=== PATIENT | male | born 1995 | race Caucasian/White ===

== ENCOUNTER 2024-04-13 19:36 | Inpatient (IN) ==
[2024-04-13] MEDS: ACETAMINOPHEN 500 MG TAB PO STA (20:01)
[2024-04-13 20:09] LABS: Basophils # (auto) 0.01 K/uL (0.00-0.20); Basophils % (auto) 0.1 %; Hematocrit (blood only) 42.8 % (42.0-52.0); Immature Granulocytes # (auto) 0.02 K/uL (0.01-0.20); Immature Granulocytes % (auto) 0.3 %; Lymphocytes # (auto) 1.45 K/uL (1.20-3.40); Lymphocytes % (auto) 19.2 %; Mean Corpuscular Volume 82.6 fL (80.0-100.0); Mean Platelet Volume 10.6 fL (9.4-12.4); Monocytes # (auto) 0.89 K/uL (0.11-0.59); Monocytes % (auto) 11.8 %; Neutrophils # (auto) 5.18 K/uL (1.40-6.50); Neutrophils % (auto) 68.6 %; Platelet Count 170 K/uL (130-400); RDW Coefficient of Variation 11.7 % (11.5-14.5); RDW Standard Deviation 35.2 fL (36.4-46.3); Red Blood Count 5.18 M/uL (4.70-6.10); White Blood Count 7.55 K/ul (4.8-10.8)
[2024-04-13 20:25] LABS: Albumin Globulin Ratio 1.2 (0.9-2); Albumin Level 4.4 gm/dl (3.4-5.0); Bilirubin,Total 0.8 mg/dl (0.2-1.0); Calcium 9.6 mg/dl (8.6-10.3); Creatinine Clr Calc Pharmacy 109.3 ml/min; Globulin 3.8 gm/dl (2.5-4.0); Potassium 3.5 mmol/L (3.5-5.1); Total Protein 8.2 gm/dl (6.0-8.3)
[2024-04-13 20:32] LABS: Troponin I High Sensitivity 4.2 pg/ml (0-20)
[2024-04-13 20:56] LABS: Adenovirus PCR Not Detected (NotDetected); Bordetella parapertussis PCR Not Detected (NotDetected); Bordetella pertussis PCR Not Detected (NotDetected); Chlamydia pneumoniae PCR Not Detected (NotDetected); Coronavirus 229E PCR Not Detected (NotDetected); Coronavirus CoV-2 (COVID19)PCR Not Detected (NotDetected); Coronavirus HKU1 PCR Not Detected (NotDetected); Coronavirus NL63 PCR Not Detected (NotDetected); Coronavirus OC43PCR Not Detected (NotDetected); Human Metapneumovirus PCR Not Detected (NotDetected); Influenza A PCR Not Detected (NotDetected); Influenza B PCR Not Detected (NotDetected); Mycoplasma pneumoniae PCR DETECTED (NotDetected); Parainfluenza Virus 1 PCR Not Detected (NotDetected); Parainfluenza Virus 2 PCR Not Detected (NotDetected); Parainfluenza Virus 3 PCR Not Detected (NotDetected); Parainfluenza Virus 4 PCR Not Detected (NotDetected); Respiratory Syncytial VirusPCR Not Detected (NotDetected); Rhinovirus/Enterovirus PCR Not Detected (NotDetected)
[2024-04-13 21:12] LABS: D Dimer 2260 ug/L FEU (0-500)
[2024-04-13] MEDS: OPTIRAY 320 125ml IV ONE (21:20)
[2024-04-13] MEDS: AZITHROMYCIN 250 MG TAB PO ONE (21:22)
--- NOTE | 2024-04-13 21:47 | Emergency Department Note ---
Impression & Plan Infection due to Mycoplasma pneumoniae, Aspiration pneumonia, Borderline low O2 saturation ED Provider Note NAME: SANJU CHATTERJEE AGE: 28 SEX: M : 1995 ARRIVES VIA: Walk-In INFORMANT: Patient ED PROVIDER(S): Fortunato Preston MD CHIEF COMPLAINT: Shortness of breath, pneumonia. PLAN: Disposition: Admit MEDICAL DECISION MAKING: The patient is a pleasant 28-year-old gentleman who presents to the emergency department for evaluation of cough, congestion, chest tightness, worsening shortness of breath over the past several days with symptoms that began on Thursday reports severe coughing fits where he vomited yesterday. He was diagnosed with pneumonia yesterday and started on Amoxicillin. He denies any history of asthma or lung disease. He denies any history of smoking. He denies any history of blood clots. Of note, the patient did arrive to emergency department during time of high volume, acuity and prolonged emergency department waiting times. Critical pathways initiated from triage. The patient presents to triage with temperature of 37.8 heart in the 120s and vital signs otherwise stable. O2 saturation is 93% and greater on room air. Vital signs are otherwise stable. On exam following CT of the chest patient is noticed to be tachypneic with mild dyspnea intermittent wheeze and rhonchi of right mid to lower lung muñoz. He appears clinically dry. EKG without overt acute ischemia. Chest x-ray demonstrates right lower lobe airspace opacities better characterized on CTA of the chest which demonstrates extensive multifocal airspace opacities involving the right middle and lower lobe. Negative for PE. WBC within normal limits without left shift. Chemistry without metabolic acidosis. LFTs are unremarkable. High-sensitivity troponin 4.2, within normal limits. Lipase is not elevated. Procalcitonin was not elevated. D-dimer was elevated at [address] of the chest. Respiratory BioFire was positive for mycoplasma pneumoniae. Azithromycin was ordered. Following CTA of the chest demonstrating significant right lower lobe pneumonia concern for component of aspiration pneumonia as well. Blood culture was ordered and Unasyn for additional coverage of aspiration. Dexamethasone and DuoNeb ordered for component of bronchospasm. Given the patient's work of breathing in setting of his tachycardia and feverishness he does agree with plan for admission for further management. 2L NSS ordered given tachycardia and tachypnea in the setting of PNA. Case was discussed with Fredy Haile hospitalist, who will evaluate the patient for admission. Further management per admitting team. Triage Nursing notes reviewed and agree them. Prior/external medical records reviewed Vital Signs: reviewed Differential diagnosis: Reactive airway disease, pneumonia, pneumothorax, COPD, CHF, infections, cardiac ischemia, pulmonary embolism, musculoskeletal, gastrointestinal, as well as other pathologies. ER treatment provided: See below. Diagnostics interpreted by me: ECG: Sinus tachycardia, 125 bpm, no ectopy, no overt ST elevation or depression, QTc 407, QRS 88. Cardiac Monitoring: An order for continuous cardiac monitoring was placed and demonstrated Sinus tachycardia, 125 bpm, no ectopy. Laboratory studies: See below Imaging studies: See below Consultation(s): Case was discussed with Dr. Mayen, [facility], who will evaluate the patient for admission. HPI: The patient is a pleasant 28-year-old gentleman who presents to the emergency department for evaluation of cough, congestion, chest tightness, worsening shortness of breath over the past several days with symptoms that began on Thursday reports severe coughing fits where he vomited yesterday. He was diagnosed with pneumonia yesterday and started on Amoxicillin. He denies any history of asthma or lung disease. He denies any history of smoking. He denies any history of blood clots. ROS: See above HPI for pertinent positives & negatives. A total of 10 systems reviewed and were otherwise negative. VITALS:See Below PHYSICAL EXAMINATION: GENERAL: Awake, alert, ill-appearing, in no distress HENT: Normocephalic, atraumatic. Oropharynx with dry mucous membranes and otherwise unremarkable. EYES: Normal conjunctiva. Sclera non-icteric. NECK: Supple. No nuchal rigidity. FROM. No JVD. RESPIRATORY: Tachypneic with mild dyspnea intermittent wheeze and rhonchi of right mid to lower lung muñoz. CARDIAC: Tachycardic rate, normal rhythm. Extremities warm and well perfused. Pulses equal. ABDOMEN: Soft, non-distended. No tenderness to palpation. No rebound or guarding. No masses. MUSCULOSKELETAL: Chest examination reveals no tenderness. The back is symmetrical on inspection without obvious abnormality. There is no CVA tenderness to palpation. No joint edema. LOWER EXTREMITIES: Calves are equal size bilaterally and non-tender. No edema. No discoloration. NEURO: Normal sensorium. No sensory or motor deficits noted. SKIN: No rash or jaundice noted. Fortunato Preston MD Past Med/Surg History Problem List (Updated 04/14/24 @ 04:57 by Fortunato Preston MD) Borderline low O2 saturation (Acute) Aspiration pneumonia (Acute) Infection due to Mycoplasma pneumoniae (Acute) No significant medical problems Social History Smoking Status: Former smoker Hx Alcohol Use: No Hx Substance Use: No Preferred Language: Bangladeshi Communication Ability: Effective Beliefs That Will Affect Care: None Current Living Situation: Spouse Feels Safe at Home: Yes Safety Concerns: Feels Safe At This Time Allergies Allergies Allergy/AdvReac Type Severity Reaction Status Date / Time No Known Allergies Allergy Unverified 03/18/16 15:59 Home Meds Home Medications Medication Instructions Recorded Confirmed venlafaxine 75 mg capsule,extended 75 mg PO DAILY 04/13/24 04/13/24 release 24 hr Results & Data (ED) Vital Signs Vital Signs - 24 hr 04/13/24 19:43 04/13/24 19:46 04/13/24 21:40 Temperature 37.8 C H Temperature Source Temporal Artery Scan Pulse Rate 128 H 114 H Pulse Rate [Apical] Pulse Rhythm [Apical] Pulse Strength [Apical] Respiratory Rate 22 Respiratory Effort / Characteristics Non-Labored Respiratory Depth Normal Blood Pressure 138/84 Blood Pressure [Right Arm] Blood Pressure Mean 102 Blood Pressure Mean [Right Arm] Pulse Oximetry 94 Oxygen Delivery Method Room Air Sepsis Recent Fever Within 48 Hours No Sepsis New/Unexplained Change in Mental Status No Sepsis Action Taken by Nursing No Action Required 04/13/24 23:16 04/13/24 23:18 Temperature 37.9 C H Temperature Source Oral Pulse Rate Pulse Rate [Apical] 106 H Pulse Rhythm [Apical] Regular Pulse Strength [Apical] Normal Respiratory Rate 18 Respiratory Effort / Characteristics Respiratory Depth Blood Pressure Blood Pressure [Right Arm] 112/69 Blood Pressure Mean Blood Pressure Mean [Right Arm] 83 Pulse Oximetry 98 96 Oxygen Delivery Method Room Air Room Air Sepsis Recent Fever Within 48 Hours Sepsis New/Unexplained Change in Mental Status Sepsis Action Taken by Nursing Laboratory Data Attestation: I reviewed the patient's lab results. 04/13/24 19:58 04/13/24 19:58 Lab Results 04/13/24 04/13/24 04/13/24 Range/Units 19:53 19:58 22:28 WBC 7.55 (4.8-10.8) K/ul RBC 5.18 (4.70-6.10) M/uL Hgb 15.0 (14.0-18.0) g/dl Hct 42.8 (42.0-52.0) % MCV 82.6 (80.0-100.0) fL MCH 29.0 (25.0-34.0) pg MCHC 35.0 (32.0-36.0) g/dL RDW Std Deviation 35.2 L (36.4-46.3) fL RDW Coeff of Sita 11.7 (11.5-14.5) % Plt Count 170 (130-400) K/uL MPV 10.6 (9.4-12.4) fL Immature Gran % (Auto) 0.3 % Neut % (Auto) 68.6 % Lymph % (Auto) 19.2 % [place] % (Auto) 11.8 % Eos % (Auto) 0.0 % Baso % (Auto) 0.1 % Neut # (Auto) 5.18 (1.40-6.50) K/uL Lymph # (Auto) 1.45 (1.20-3.40) K/uL [place] # (Auto) 0.89 H (0.11-0.59) K/uL Eos # (Auto) 0.00 (0.00-0.50) K/uL Baso # (Auto) 0.01 (0.00-0.20) K/uL Immature Gran # (Auto) 0.02 (0.01-0.20) K/uL D-Dimer 2260 H* (0-500) ug/L FEU Sodium 135 L (136-145) mmol/L Potassium 3.5 (3.5-5.1) mmol/L Chloride 101 (98-107) mmol/L Carbon Dioxide 24 (21-32) mmol/L Anion Gap 10 (3-11) BUN 12 (6-23) mg/dl Creatinine 1.20 (0.6-1.4) mg/dl Est Cr Clr Drug Dosing 109.3 ml/min eGFR 83.95 BUN/Creatinine Ratio 10.0 (10-20) Glucose 111 H (70-99(Fasting)) mg/dl Lactate 1.2 (0.4-2.0) mmol/L Calcium 9.6 (8.6-10.3) mg/dl Total Bilirubin 0.8 (0.2-1.0) mg/dl AST 31 (13-39) U/L ALT 46 (7-52) U/L Alkaline Phosphatase 85 (34-104) U/L Troponin I High Sens 4.2 (0-20) pg/ml Total Protein 8.2 (6.0-8.3) gm/dl Albumin 4.4 (3.4-5.0) gm/dl Globulin 3.8 (2.5-4.0) gm/dl Albumin/Globulin Ratio 1.2 (0.9-2) Lipase 19 (11-82) U/L Procalcitonin 0.22 (0-0.5) ng/ml Adenovirus (PCR) Not Detected (NotDetected) B. pertussis DNA (PCR) Not Detected (NotDetected) B.parapertussis DNA PCR Not Detected (NotDetected) C. pneumoniae DNA (PCR) Not Detected (NotDetected) Coronavirus OC43 (PCR) Not Detected (NotDetected) Coronavirus HKU1 (PCR) Not Detected (NotDetected) Coronavirus 229E (PCR) Not Detected (NotDetected) SARS-CoV-2 (PCR) Not Detected (NotDetected) Coronavirus NL63 (PCR) Not Detected (NotDetected) Human Metapneumovir PCR Not Detected (NotDetected) Influenza Type A (PCR) Not Detected (NotDetected) Influenza Type B (PCR) Not Detected (NotDetected) M. pneumoniae (PCR) DETECTED A (NotDetected) Parainfluenza 1 (PCR) Not Detected (NotDetected) Parainfluenza 2 (PCR) Not Detected (NotDetected) Parainfluenza 3 (PCR) Not Detected (NotDetected) Parainfluenza 4 (PCR) Not Detected (NotDetected) RSV (PCR) Not Detected (NotDetected) Entero/Rhino (PCR) Not Detected (NotDetected) Administered Medications Discontinued Medications Acetaminophen (Acetaminophen 500 Mg Tab) 1,000 mg PO NOW STA Stop: 04/13/24 19:48 Last Admin: 04/13/24 20:01 Dose: 1,000 mg Documented By: [facility] Albuterol (Albut/Ipratrop 3mg/0.5mg Neb 3 Ml Vial) 3 ml NEB NOW STA; Protocol Stop: 04/13/24 21:34 Last Admin: 04/13/24 21:51 Dose: 3 ml Documented By: SHANTAL Azithromycin (Azithromycin 250 Mg Tab) 500 mg PO NOW ONE Stop: 04/13/24 21:07 Last Admin: 04/13/24 21:22 Dose: 500 mg Documented By: ASAD Benzonatate (Benzonatate 100 Mg Capsule) 100 mg PO NOW ONE Stop: 04/14/24 00:44 Last Admin: 04/14/24 01:34 Dose: 100 mg Documented By: Hegla Dexamethasone Sodium Phosphate (DexamethasonePf 10 Mg/Ml Vial) 10 mg IV NOW ONE Stop: 04/13/24 21:34 Last Admin: 04/13/24 21:51 Dose: 10 mg Documented By: SHANTAL Guaifenesin (Guaifenesin 600 Mg Tabcr) 1,200 mg PO NOW STA Stop: 04/13/24 21:34 Last Admin: 04/13/24 21:54 Dose: 1,200 mg Documented By: SHANTAL Sodium Chloride (Nss) 1,000 mls @ 999 mls/hr IV .Q1H1M [facility] Stop: 04/13/24 23:45 Last Infusion: 04/14/24 01:15 Dose: Infused Documented By: [facility] Admin: 04/14/24 00:08 Dose: 999 mls/hr Documented By: Infusion: 04/13/24 23:20 Dose: Infused Documented By: [facility] Admin: 04/13/24 21:52 Dose: 999 mls/hr Documented By: SHANTAL Ampicillin Sodium/Sulbactam Sodium (Unasyn) 3,000 mg in 100 mls @ 200 mls/hr IV NOW STA Stop: 04/13/24 22:02 Last Infusion: 04/13/24 23:37 Dose: Infused Documented By: [facility] Admin: 04/13/24 22:51 Dose: 200 mls/hr Documented By: SHANTAL Sodium Chloride (Nss) 500 mls @ 80 mls/hr IV .Q6H15M [facility] Stop: 04/14/24 06:57 Last Admin: 04/14/24 01:44 Dose: Not Given Documented By: [facility] Ioversol (Optiray 320 125ml) 118 ml IV ONCE ONE Stop: 04/13/24 21:21 Last Admin: 04/13/24 21:20 Dose: 118 ml Documented By: MALLORY Ketorolac Tromethamine (Ketorolac Tromethamine 15 Mg/Ml Vial) 15 mg IV NOW STA Stop: 04/13/24 21:34 Last Admin: 04/13/24 21:51 Dose: 15 mg Documented By: SHANTAL Imaging Data Radiologist's Impression: Chest X-Ray 04/13/24 19:46 SINGLE VIEW CHEST CLINICAL HISTORY: Atypical chest pain FINDINGS: 2 PA chest radiographs are obtained. No prior studies are available for comparison at the time of dictation. The cardiomediastinal silhouette is unremarkable. There is airspace consolidation at the right lung base. Left lung appears clear. No large pleural effusion or Pneumothorax is seen. The bony thorax is grossly intact. IMPRESSION: Airspace consolidation at the right lung base is typical for pneumonia. Clinical correlation will be required and radiographic follow-up to resolution is recommended. ACT 112: Negative or not required by law. Electronically signed by: Munir Mcneil M.D. 04/13/2024 9:59 PM Chest CTA 04/13/24 21:06 Exam(s): CTA CHEST IV Amt: 118ml optiray 320 EXAM: CT Angiography Chest With Intravenous Contrast CLINICAL HISTORY: shortness of breath, +D-dimer, +mycoplasma, r/o PE. TECHNIQUE: Axial computed tomographic angiography images of the chest with intravenous contrast. CTDI is 28.14 mGy and DLP is 852.52 mGy-cm. Automated exposure control was utilized for the study. A dose lowering technique was utilized adhering to the principles of ALARA. MIP reconstructed images were created and reviewed. COMPARISON: No relevant prior studies available. FINDINGS: Limitations: There is respiratory artifact, which degrades image quality throughout the examination. Pulmonary arteries: Accounting for limitations with respiratory artifact, there is no evidence for pulmonary embolism. A few distal subsegmental pulmonary artery segments are of limited quality. Aorta: The thoracic aorta is normal in caliber. No dissection or aneurysm. Lungs: Patchy to confluent airspace disease noted in the right lower lobe with air bronchograms identified in the posterior basal segments. No definite cavitation. Minimal subsegmental changes noted involving the inferomedial right middle lobe. No mass. No consolidation. Pleural space: Unremarkable. No significant effusion. No pneumothorax. Heart: Unremarkable. No cardiomegaly. No significant pericardial effusion. Bones/joints: No acute fracture. No dislocation. Soft tissues: Unremarkable. Lymph nodes: Presumed reactive right hilar lymph nodes measuring up to 10 mm. No other significant mediastinal lymphadenopathy. IMPRESSION: 1. Accounting for limitations with respiratory artifact, there is no evidence for pulmonary embolism. A few distal subsegmental pulmonary artery segments are of limited quality. 2. Patchy to confluent airspace disease noted in the right lower lobe with air bronchograms identified in the posterior basal segments. No definite cavitation. Minimal subsegmental changes noted involving the inferomedial right middle lobe. Findings are most consistent with multifocal pneumonia, most prominent in the right lower lobe. No pleural effusion or pneumothorax. Electronically signed by: Yehuda Kenney MD 04/13/24 22:08 PM Discharge Plan Visit Data Chief Complaint: Shortness of Breath/Dyspnea Stated Complaint: PNEUMONIA, SOB ED Provider: Fortunato Preston Discharge Problem: Infection due to Mycoplasma pneumoniae, Aspiration pneumonia, Borderline low O2 saturation Discharge Instructions Interventions: ED Discharge Assessment Last Done: 04/14/24 00:43 Discharge Problem: Aspiration pneumonia Qualifiers: Aspiration pneumonia type: unspecified Laterality: right Lung location: lower lobe of lung Qualified Code(s): J69.0 - Pneumonitis due to inhalation of food and vomit
[2024-04-13] MEDS: ALBUT/IPRATROP 3MG/0.5MG NEB 3 ML VIAL NEB STA (21:51)
[2024-04-13] MEDS: KETOROLAC TROMETHAMINE 15 MG/ML VIAL IV STA (21:51)
[2024-04-13] MEDS: dexAMETHasone**PF** 10 MG/ML VIAL IV ONE (21:51)
[2024-04-13] MEDS: SODIUM CHLORIDE 0.9% 1,000 ML IV SCH (21:52)
[2024-04-13] MEDS: guaiFENesin 600 MG TABCR PO STA (21:54)
--- NOTE | 2024-04-13 22:01 | XRay Report ---
SINGLE VIEW CHEST CLINICAL HISTORY: Atypical chest pain FINDINGS: 2 PA chest radiographs are obtained. No prior studies are available for comparison at the t tayo of dictation. The cardiomediastinal silhouette is unremarkable. There is airspace consolidation a t the right lung base. Left lung appears clear. No large pleural effusion or Pneumothorax is seen. Th e bony thorax is grossly intact. IMPRESSION: Airspace consolidation at the right lung base is typical for pneumonia. Clinical correlat ion will be required and radiographic follow-up to resolution is recommended. ACT 112: Negative or not required by law. Electronically signed by: Munir Mcneil M.D. 04/13/2024 9:59 PM
--- NOTE | 2024-04-13 22:08 | CT Scan Report ---
Exam(s): CTA CHEST IV Amt: 118ml optiray 320 EXAM: CT Angiography Chest With Intravenous Contrast CLINICAL HISTORY: shortness of breath, +D-dimer, +mycoplasma, r/o PE. TECHNIQUE: Axial computed tomographic angiography images of the chest with intravenous contrast. CTDI is 28.14 mGy and DLP is 852.52 mGy-cm. Automated exposure control was utilized for the study. A dose lowering technique was utilized adhering to the principles of ALARA. MIP reconstructed images were created and reviewed. COMPARISON: No relevant prior studies available. FINDINGS: Limitations: There is respiratory artifact, which degrades image quality throughout the examination. Pulmonary arteries: Accounting for limitations with respiratory artifact, there is no evidence for pulmonary embolism. A few distal subsegmental pulmonary artery segments are of limited quality. Aorta: The thoracic aorta is normal in caliber. No dissection or aneurysm. Lungs: Patchy to confluent airspace disease noted in the right lower lobe with air bronchograms identified in the posterior basal segments. No definite cavitation. Minimal subsegmental changes noted involving the inferomedial right middle lobe. No mass. No consolidation. Pleural space: Unremarkable. No significant effusion. No pneumothorax. Heart: Unremarkable. No cardiomegaly. No significant pericardial effusion. Bones/joints: No acute fracture. No dislocation. Soft tissues: Unremarkable. Lymph nodes: Presumed reactive right hilar lymph nodes measuring up to 10 mm. No other significant mediastinal lymphadenopathy. IMPRESSION: 1. Accounting for limitations with respiratory artifact, there is no evidence for pulmonary embolism. A few distal subsegmental pulmonary artery segments are of limited quality. 2. Patchy to confluent airspace disease noted in the right lower lobe with air bronchograms identified in the posterior basal segments. No definite cavitation. Minimal subsegmental changes noted involving the inferomedial right middle lobe. Findings are most consistent with multifocal pneumonia, most prominent in the right lower lobe. No pleural effusion or pneumothorax. Electronically signed by: Yehuda Kenney MD 04/13/24 22:08 PM
[2024-04-13] MEDS: AMPICILLIN/SULBACTAM SOD 3,000 MG/100 ML BAG IV STA (22:51)
[2024-04-14] MEDS ORDERED: LEVALBUTEROL 1.25 MG/3 ML NEB NEB PRN (00:43)
[2024-04-14] MEDS ORDERED: ONDANSETRON INJ 2 MG/ML 2 ML VIAL IV PRN (00:43)
[2024-04-14] MEDS ORDERED: NITROGLYCERIN SL 0.4 MG/TAB TAB SL PRN (00:43)
[2024-04-14] MEDS ORDERED: guaiFENesin/CODEINE 100MG/10MG 5ML UDC PO PRN (00:43)
[2024-04-14] MEDS: BENZONATATE 100 MG CAPSULE PO ONE (01:34)
[2024-04-14] MEDS: SODIUM CHLORIDE 0.9% 500 ML IV SCH (01:35)
--- NOTE | 2024-04-14 03:36 | History & Physical Report ---
Date of Service April 13, 2024 Assessment & Plan (1) Aspiration pneumonia: Plan: 28-year-old male with past medical history significant for laryngeal spasm, obstructive sleep apnea but was not tolerant to CPAP, irritable bowel syndrome, GERD, history of binge eating disorder, presents with cough and shortness of breath and found to have pneumonia. Since last Thursday patient having fever and chills but since last night developed cough and shortness of breath. Yesterday had also episode of vomiting. Currently still nauseous. Has some chest tightness. No headache. No runny nose or sore throat. No abdominal pain. Normal bowel and bladder movements. In the ER he was tachycardic and spiking temperatures and received fluids. Respiratory bio fire came back positive for mycoplasma pneumonia. Aspiration pneumonia Mycoplasma pneumonia Yesterday had episode of vomiting probably aspirated CT scan showing multifocal pneumonia ER started azithromycin and Unasyn which will be continued Nebs as needed Monitor in the hospital History of obstructive sleep apnea Patient states he could not tolerate CPAP Patient states he sleeps well DVT prophylaxis Lovenox Disposition Med/telemetry Full code. (2) Infection due to Mycoplasma pneumoniae: History of Present Illness Chief Complaint: Cough and shortness of breath Primary Care Provider: Dioni Hartman MD 28-year-old male with past medical history significant for laryngeal spasm, obstructive sleep apnea but was not tolerant to CPAP, irritable bowel syndrome, GERD, history of binge eating disorder, presents with cough and shortness of breath and found to have pneumonia. Since last Thursday patient having fever and chills but since last night developed cough and shortness of breath. Yesterday had also episode of vomiting. Currently still nauseous. Has some chest tightness. No headache. No runny nose or sore throat. No abdominal pain. Normal bowel and bladder movements. In the ER he was tachycardic and spiking temperatures and received fluids. Respiratory bio fire came back positive for mycoplasma pneumonia. Past medical history. As mentioned above Past surgical history. Knee arthroscopy. Laryngoscopy. Right thigh lipoma removed. Left shoulder arthroscopy. Social history. No smoking. Alcohol rarely. No drug use. Family history. Father has Crohn's disease. Paternal uncle has ulcerative colitis. Allergies Allergy/AdvReac Type Severity Reaction Status Date / Time No Known Allergies Allergy Unverified 03/18/16 15:59 Home Medications Medication Instructions Recorded Confirmed Type venlafaxine 75 mg capsule,extended 75 mg PO DAILY 04/13/24 04/13/24 History release 24 hr Past Med/Surg History Problem List (Updated 04/14/24 @ 04:57 by Fortunato Preston MD) Borderline low O2 saturation (Acute) Aspiration pneumonia (Acute) Infection due to Mycoplasma pneumoniae (Acute) No significant medical problems Social History Smoking Status: Former smoker Hx Alcohol Use: No Hx Substance Use: No Preferred Language: Occitan Communication Ability: Effective Beliefs That Will Affect Care: None Current Living Situation: Spouse Feels Safe at Home: Yes Safety Concerns: Feels Safe At This Time Review of Systems Review of Systems: All systems reviewed & are unremarkable except as noted in HPI & below Physical Exam Physical Exam: General- Not in distress Head- atraumatic Eyes- PERRL. ENT- oropharynx clear Neck- supple, no JVD. Lungs- clear to auscultation no wheezing, mild bibasilar crackles Heart- regular rhythm; tachycardia,no murmur, no gallop. Abdomen- normal bowel sounds, soft, nontender, no distension. Extremities- no pretibial edema, no erythema seen Neuro- alert, oriented PERRL, no facial palsy; no dysarthria; moves extremities Results & Data Results & Data Vital Signs (Past 12 Hours) Vital Signs Temp Pulse Pulse Resp BP BP Pulse Ox 04/13/24 23:18 96 04/13/24 23:16 37.9 C H 106 H 18 112/69 98 04/13/24 21:40 114 H 04/13/24 19:43 37.8 C H 128 H 22 138/84 94 O2 Del Method 04/13/24 23:18 Room Air 04/13/24 23:16 Room Air 04/13/24 21:40 04/13/24 19:43 Room Air Diagnostic Findings Laboratory Results WBC 7.55 K/ul (4.8-10.8) 04/13/24 19:58 RBC 5.18 M/uL (4.70-6.10) 04/13/24 19:58 Hgb 15.0 g/dl (14.0-18.0) 04/13/24 19:58 Hct 42.8 % (42.0-52.0) 04/13/24 19:58 MCV 82.6 fL (80.0-100.0) 04/13/24 19:58 MCH 29.0 pg (25.0-34.0) 04/13/24 19:58 MCHC 35.0 g/dL (32.0-36.0) 04/13/24 19:58 RDW Std Deviation 35.2 fL (36.4-46.3) L 04/13/24 19:58 RDW Coeff of Sita 11.7 % (11.5-14.5) 04/13/24 19:58 Plt Count 170 K/uL (130-400) 04/13/24 19:58 MPV 10.6 fL (9.4-12.4) 04/13/24 19:58 Immature Gran % (Auto) 0.3 % 04/13/24 19:58 Neut % (Auto) 68.6 % 04/13/24 19:58 Lymph % (Auto) 19.2 % 04/13/24 19:58 Ripley % (Auto) 11.8 % 04/13/24 19:58 Eos % (Auto) 0.0 % 04/13/24 19:58 Baso % (Auto) 0.1 % 04/13/24 19:58 Neut # (Auto) 5.18 K/uL (1.40-6.50) 04/13/24 19:58 Lymph # (Auto) 1.45 K/uL (1.20-3.40) 04/13/24 19:58 Ripley # (Auto) 0.89 K/uL (0.11-0.59) H 04/13/24 19:58 Eos # (Auto) 0.00 K/uL (0.00-0.50) 04/13/24 19:58 Baso # (Auto) 0.01 K/uL (0.00-0.20) 04/13/24 19:58 Immature Gran # (Auto) 0.02 K/uL (0.01-0.20) 04/13/24 19:58 D-Dimer 2260 ug/L FEU (0-500) H* 04/13/24 19:58 Sodium 135 mmol/L (136-145) L 04/13/24 19:58 Potassium 3.5 mmol/L (3.5-5.1) 04/13/24 19:58 Chloride 101 mmol/L (98-107) 04/13/24 19:58 Carbon Dioxide 24 mmol/L (21-32) 04/13/24 19:58 Anion Gap 10 (3-11) 04/13/24 19:58 BUN 12 mg/dl (6-23) 04/13/24 19:58 Creatinine 1.20 mg/dl (0.6-1.4) 04/13/24 19:58 Est Cr Clr Drug Dosing 109.3 ml/min 04/13/24 19:58 eGFR 83.95 04/13/24 19:58 BUN/Creatinine Ratio 10.0 (10-20) 04/13/24 19:58 Glucose 111 mg/dl (70-99(Fasting)) H 04/13/24 19:58 Lactate 1.2 mmol/L (0.4-2.0) 04/13/24 22:28 Calcium 9.6 mg/dl (8.6-10.3) 04/13/24 19:58 Total Bilirubin 0.8 mg/dl (0.2-1.0) 04/13/24 19:58 AST 31 U/L (13-39) 04/13/24 19:58 ALT 46 U/L (7-52) 04/13/24 19:58 Alkaline Phosphatase 85 U/L (34-104) 04/13/24 19:58 Troponin I High Sens 4.2 pg/ml (0-20) 04/13/24 19:58 Total Protein 8.2 gm/dl (6.0-8.3) 04/13/24 19:58 Albumin 4.4 gm/dl (3.4-5.0) 04/13/24 19:58 Globulin 3.8 gm/dl (2.5-4.0) 04/13/24 19:58 Albumin/Globulin Ratio 1.2 (0.9-2) 04/13/24 19:58 Lipase 19 U/L (11-82) 04/13/24 19:58 Procalcitonin 0.22 ng/ml (0-0.5) 04/13/24 19:58 Nasal Screen MRSA (PCR) Negative (Negative) 04/13/24 Unknown Adenovirus (PCR) Not Detected (NotDetected) 04/13/24 19:53 B. pertussis DNA (PCR) Not Detected (NotDetected) 04/13/24 19:53 B.parapertussis DNA PCR Not Detected (NotDetected) 04/13/24 19:53 C. pneumoniae DNA (PCR) Not Detected (NotDetected) 04/13/24 19:53 Coronavirus OC43 (PCR) Not Detected (NotDetected) 04/13/24 19:53 Coronavirus HKU1 (PCR) Not Detected (NotDetected) 04/13/24 19:53 Coronavirus 229E (PCR) Not Detected (NotDetected) 04/13/24 19:53 SARS-CoV-2 (PCR) Not Detected (NotDetected) 04/13/24 19:53 Coronavirus NL63 (PCR) Not Detected (NotDetected) 04/13/24 19:53 Human Metapneumovir PCR Not Detected (NotDetected) 04/13/24 19:53 Influenza Type A (PCR) Not Detected (NotDetected) 04/13/24 19:53 Influenza Type B (PCR) Not Detected (NotDetected) 04/13/24 19:53 M. pneumoniae (PCR) DETECTED (NotDetected) A 04/13/24 19:53 Parainfluenza 1 (PCR) Not Detected (NotDetected) 04/13/24 19:53 Parainfluenza 2 (PCR) Not Detected (NotDetected) 04/13/24 19:53 Parainfluenza 3 (PCR) Not Detected (NotDetected) 04/13/24 19:53 Parainfluenza 4 (PCR) Not Detected (NotDetected) 04/13/24 19:53 RSV (PCR) Not Detected (NotDetected) 04/13/24 19:53 Entero/Rhino (PCR) Not Detected (NotDetected) 04/13/24 19:53 Impressions Chest X-Ray 04/13/24 19:46 SINGLE VIEW CHEST CLINICAL HISTORY: Atypical chest pain FINDINGS: 2 PA chest radiographs are obtained. No prior studies are available for comparison at the time of dictation. The cardiomediastinal silhouette is u nremarkable. There is airspace consolidation at the right lung base. Left lung appears clear. No large pleural effusion or Pneumothorax is seen. The bony thorax is grossly intact. IMPRESSION: Airspace consolidation at the right lung base is typical for pneumonia. Clinical correlation will be required and radiographic follow-up to resolution is recommended. ACT 112: Negative or not required by law. Electronically signed by: Munir Mcneil M.D. 04/13/2024 9:59 PM Chest CTA 04/13/24 21:06 Exam(s): CTA CHEST IV Amt: 118ml optiray 320 EXAM: CT Angiography Chest With Intravenous Contrast CLINICAL HISTORY: shortness of breath, +D-dimer, +mycoplasma, r/o PE. TECHNIQUE: Axial computed tomographic angiography images of the chest with intravenous contrast. CTDI is 28.14 mGy and DLP is 852.52 mGy-cm. Automated exposure control was utilized for the study. A dose lowering technique was utilized adhering to the principles of ALARA. MIP reconstructed images were created and reviewed. COMPARISON: No relevant prior studies available. FINDINGS: Limitations: There is respiratory artifact, which degrades image quality throughout the examination. Pulmonary arteries: Accounting for limitations with respiratory artifact, there is no evidence for pulmonary embolism. A few distal subsegmental pulmonary artery segments are of limited quality. Aorta: The thoracic aorta is normal in caliber. No dissection or aneurysm. Lungs: Patchy to confluent airspace disease noted in the right lower lobe with air bronchograms identified in the posterior basal segments. No definite cavitation. Minimal subsegmental changes noted involving the inferomedial right middle lobe. No mass. No consolidation. Pleural space: Unremarkable. No significant effusion. No pneumothorax. Heart: Unremarkable. No cardiomegaly. No significant pericardial effusion. Bones/joints: No acute fracture. No dislocation. Soft tissues: Unremarkable. Lymph nodes: Presumed reactive right hilar lymph nodes measuring up to 10 mm. No other significant mediastinal lymphadenopathy. IMPRESSION: 1. Accounting for limitations with respiratory artifact, there is no evidence for pulmonary embolism. A few distal subsegmental pulmonary artery segments are of limited quality. 2. Patchy to confluent airspace disease noted in the right lower lobe with air bronchograms identified in the posterior basal segments. No definite cavitation. Minimal subsegmental changes noted involving the inferomedial right middle lobe. Findings are most consistent with multifocal pneumonia, most prominent in the right lower lobe. No pleural effusion or pneumothorax. Electronically signed by: Yehuda Kenney MD 04/13/24 22:08 PM Laboratory Results - last 24 hr 04/13/24 04/13/2404/13/24 19:53 19:58 22:28 WBC 7.55 RBC 5.18 Hgb 15.0 Hct 42.8 MCV 82.6 MCH 29.0 MCHC 35.0 RDW Std Deviation 35.2 L RDW Coeff of Sita 11.7 Plt Count 170 MPV 10.6 Immature Gran % (Auto) 0.3 Neut % (Auto) 68.6 Lymph % (Auto) 19.2 Ripley % (Auto) 11.8 Eos % (Auto) 0.0 Baso % (Auto) 0.1 Neut # (Auto) 5.18 Lymph # (Auto) 1.45 Ripley # (Auto) 0.89 H Eos # (Auto) 0.00 Baso # (Auto) 0.01 Immature Gran # (Auto) 0.02 D-Dimer 2260 H* Sodium 135 L Potassium 3.5 Chloride 101 Carbon Dioxide 24 Anion Gap 10 BUN 12 Creatinine 1.20 Est Cr Clr Drug Dosing 109.3 eGFR 83.95 BUN/Creatinine Ratio 10.0 Glucose 111 H Lactate 1.2 Calcium 9.6 Total Bilirubin 0.8 AST 31 ALT 46 Alkaline Phosphatase 85 Troponin I High Sens 4.2 Total Protein 8.2 Albumin 4.4 Globulin 3.8 Albumin/Globulin Ratio 1.2 Lipase 19 Procalcitonin 0.22 Nasal Screen MRSA (PCR) Adenovirus (PCR) Not Detected B. pertussis DNA (PCR) Not Detected B.parapertussis DNA PCR Not Detected C. pneumoniae DNA (PCR) Not Detected Coronavirus OC43 (PCR) Not Detected Coronavirus HKU1 (PCR) Not Detected Coronavirus 229E (PCR) Not Detected SARS-CoV-2 (PCR) Not Detected Coronavirus NL63 (PCR) Not Detected Human Metapneumovir PCR Not Detected Influenza Type A (PCR) Not Detected Influenza Type B (PCR) Not Detected M. pneumoniae (PCR) DETECTED A Parainfluenza 1 (PCR) Not Detected Parainfluenza 2 (PCR) Not Detected Parainfluenza 3 (PCR) Not Detected Parainfluenza 4 (PCR) Not Detected RSV (PCR) Not Detected Entero/Rhino (PCR) Not Detected 04/13/24 Unknown WBC RBC Hgb Hct MCV MCH MCHC RDW Std Deviation RDW Coeff of Sita Plt Count MPV Immature Gran % (Auto) Neut % (Auto) Lymph % (Auto) Ripley % (Auto) Eos % (Auto) Baso % (Auto) Neut # (Auto) Lymph # (Auto) Ripley # (Auto) Eos # (Auto) Baso # (Auto) Immature Gran # (Auto) D-Dimer Sodium Potassium Chloride Carbon Dioxide Anion Gap BUN Creatinine Est Cr Clr Drug Dosing eGFR BUN/Creatinine Ratio Glucose Lactate Calcium Total Bilirubin AST ALT Alkaline Phosphatase Troponin I High Sens Total Protein Albumin Globulin Albumin/Globulin Ratio Lipase Procalcitonin Nasal Screen MRSA (PCR) Negative Adenovirus (PCR) B. pertussis DNA (PCR) B.parapertussis DNA PCR C. pneumoniae DNA (PCR) Coronavirus OC43 (PCR) Coronavirus HKU1 (PCR) Coronavirus 229E (PCR) SARS-CoV-2 (PCR) Coronavirus NL63 (PCR) Human Metapneumovir PCR Influenza Type A (PCR) Influenza Type B (PCR) M. pneumoniae (PCR) Parainfluenza 1 (PCR) Parainfluenza 2 (PCR) Parainfluenza 3 (PCR) Parainfluenza 4 (PCR) RSV (PCR) Entero/Rhino (PCR) ECG Additional Comments: ECG sinus tachycardia rate of 125. QTc 407. Code Status & VTE Plan VTE Prophylaxis Plan VTE Prophylaxis will be ordered: Yes
[2024-04-14] MEDS ORDERED: AMPICILLIN SOD/SULBACTAM SOD 3 GM VIAL IV SCH (05:00)
[2024-04-14 05:10] LABS: Basophils # (auto) 0.01 K/uL (0.00-0.20); Basophils % (auto) 0.2 %; Hematocrit (blood only) 40.1 % (42.0-52.0); Hemoglobin 13.7 g/dl (14.0-18.0); Immature Granulocytes # (auto) 0.02 K/uL (0.01-0.20); Immature Granulocytes % (auto) 0.3 %; Lymphocytes # (auto) 0.84 K/uL (1.20-3.40); Lymphocytes % (auto) 12.7 %; Mean Corpuscular Hemoglobin 28.4 pg (25.0-34.0); Mean Corpuscular Hgb Conc 34.2 g/dL (32.0-36.0); Mean Corpuscular Volume 83.2 fL (80.0-100.0); Monocytes # (auto) 0.34 K/uL (0.11-0.59); Monocytes % (auto) 5.2 %; Neutrophils # (auto) 5.39 K/uL (1.40-6.50); Neutrophils % (auto) 81.6 %; Platelet Count 159 K/uL (130-400); RDW Coefficient of Variation 11.8 % (11.5-14.5); RDW Standard Deviation 35.6 fL (36.4-46.3); Red Blood Count 4.82 M/uL (4.70-6.10)
[2024-04-14] MEDS: AMPICILLIN/SULBACTAM SOD 3,000 MG/100 ML BAG IV SCH (05:26)
[2024-04-14] MEDS: ACETAMINOPHEN 325 MG TAB PO PRN (05:27)
[2024-04-14 05:28] LABS: BUN Creatinine Ratio 11.7 (10-20); Calcium 8.7 mg/dl (8.6-10.3); Creatinine Clr Calc Pharmacy 127.3 ml/min; Magnesium 1.8 mg/dl (1.7-2.4); Potassium 4.3 mmol/L (3.5-5.1)
[2024-04-14] MEDS: VENLAFAXINE HCL XR 75 MG CAPXR PO SCH (08:24)
[2024-04-14] MEDS: ENOXAPARIN INJ 40 MG/0.4 ML SYR SQ SCH (08:24)
[2024-04-14] MEDS: BENZONATATE 100 MG CAPSULE PO SCH (08:24)
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
--- OUTSIDE RECORDS SUMMARY | 2024-04-14 10:24 | External Medical Summary ---
Author Name Unknown Address Unknown Organization [id number]:LABORATORY [facility] [place] - [address] [facility] [address] Laboratory Report Ordering Provider Test Date Status ITALIA LANDAVERDE 04/12/2024 13:07:01 Final Observation Date Value Abnormality Reference (Units ) Status SARS Coronavirus 2 04/12/2024 13:07:01 Negative N egative Final No SARS-CoV2 Coronavirus RNA detected by PCR (amplified probe).
This automated test was developed and its performance characteristics determined by [facility]. It has not been cleared or approved by the U.S. Food and Drug Administration (FDA). FDA does not require this test to go thru premarket FDA review. This test is used for clinical purposes. It should not be regarded as investigational or for research. This laboratory is certified under the Clinical Laboratory Improvement Amendments (CLIA) as qualified to perform high complexity clinical laboratory testing.

This test is a nucleic acid amplification test (NAAT), a reverse transcriptase polymerase chain reaction (RT-PCR) test, or a Centers for Disease Control-acceptable equivalent. The test is performed in a high complexity Clinical Laboratory Improvement Amendments-(CLIA) certified laboratory. The test is acceptable for SARS-CoV-2 diagnosis, surveillance, and travel within the [place] and to most countries. Please check with local testing authorities about requirements before travel.

The validation of bronchial specimens, tracheal aspirates, and sputum for this assay was developed and performance characteristics determined by [facility]. The validation of alternate specimen types has not been cleared or approved by the U.S. Food and Drug Administration (FDA). It has been determined that such clearance or approval is not necessary. Influenza virus A RNA [Prese nce] in Specimen by FRANCISCO with probe detection 04/12/2024 13:07:01 Negative Negative Final No Influenza A RNA detected by PCR (amplified probe) Influenza virus B RNA [Prese nce] in Specimen by FRANCISCO with probe detection 04/12/2024 13:07:01 Negative Negative Final No Influenza B RNA detected by PCR (amplified probe) Respiratory syncytial virus RNA [Identifier] in Specimen by FRANCISCO with probe detection 04/12/2024 13:07:01 Negative Negative Final No Respiratory Syncytial Vir us RNA detected by PCR (amplified probe) Performing Location LABORATORY [place] [address] [facility] [address]
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
--- NOTE | 2024-04-14 12:53 | Hospitalist Progress Note ---
Date of Service April 14, 2024 Assessment & Plan (1) Pneumonia involving right lung: (2) Aspiration pneumonia: (3) Infection due to Mycoplasma pneumoniae: Plan 28-year-old male with past medical history significant for laryngeal spasm, obstructive sleep apnea but was not tolerant to CPAP, irritable bowel syndrome, GERD, history of binge eating disorder, presents with cough and shortness of breath and found to have pneumonia. In the ER he was tachycardic and spiking temperatures and received fluids. Respiratory bio fire came back positive for mycoplasma pneumonia. CXR showed Right lung pneumonia CT PE did not show PE but noted right lung pnueumonia Mycoplasma pneumonia Possible aspiration pneumonia Continue unasyn, azithromycin Wean off oxygen Supportive care History of obstructive sleep apnea Patient states he could not tolerate CPAP Patient states he sleeps well Plan to follow up with sleep medicine about his machine DVT prophylaxis Lovenox Disposition Med/telemetry Full code. I spent a total of 50 minutes coordinating, documenting and providing care for this patient excluding time spent in performance of separately billed services Admission and Anticipated Discharge Date Admission Date: April 13, 2024 Subjective Patient seen and examined Reports productive cough, SOB Reports some soreness with coughing Denied congestion Denied headache, dizziness, nausea, vomiting, abd pain Reports diarrhea (loose stool) Denied other complaints on ROS Physical Exam Constitutional: + well hydrated; no acute distress Eyes: PERRL, conjunctivae normal, anicteric sclerae ENMT: external ear and nose normal, oropharynx normal Respiratory: On nasal cannula, not in resp distress, few crackles in Right lung Cardiovascular: Rate/Rhythm: regular rate and regular rhythm Gastrointestinal (Abdomen): normal bowel sounds, soft, nontender, no hepat osplenomegaly Musculoskeletal: no cyanosis or clubbing, extremities motor strength 5/5 Neurologic: PERRL, EOMI, accommodation nl, no face palsy, no dysarthria Psychiatric: A+Ox3, euthymic affect Results & Data Results & Data Vital Signs (Past 12 Hours) Vital Signs Temp Pulse Pulse Resp BP BP Pulse Ox 04/14/24 09:51 04/14/24 08:28 36.7 C 85 22 126/81 95 04/14/24 07:07 86 04/14/24 06:56 36.8 C 04/14/24 06:00 80 18 108/82 98 04/14/24 05:03 74 18 128/84 95 04/14/24 04:00 81 22 101/59 L 95 04/14/24 04:00 101/59 L 04/14/24 03:06 86 16 99/78 L 95 04/14/24 02:36 04/14/24 02:30 99/78 L 04/14/24 02:12 04/14/24 02:11 36.8 C 86 18 125/73 99 04/14/24 02:03 86 18 94/52 L 95 04/14/24 01:21 123/77 04/14/24 01:12 92 H 31 H 123/77 100 Pulse Ox O2 Del Method O2 Del Method O2 Flow Rate 04/14/24 09:51 Nasal Cannula 1 04/14/24 08:28 Nasal Cannula 1 04/14/24 07:07 04/14/24 06:56 04/14/24 06:00 Nasal Cannula 1 04/14/24 05:03 Nasal Cannula 1 04/14/24 04:00 Nasal Cannula 1 04/14/24 04:00 04/14/24 03:06 Nasal Cannula 1 04/14/24 02:36 Nasal Cannula 1 04/14/24 02:30 04/14/24 02:12 99 Nasal Cannula 04/14/24 02:11 Nasal Cannula 1 04/14/24 02:03 Nasal Cannula 2 04/14/24 01:21 04/14/24 01:12 Nasal Cannula 1 Laboratory Results Abnormal lab results 04/13/24 04/13/24 04/14/24 Range/Units 19:53 19:58 04:36 Hgb 13.7 L (14.0-18.0) g/dl Hct 40.1 L (42.0-52.0) % RDW Std Deviation 35.2 L 35.6 L (36.4-46.3) fL Lymph # (Auto) 0.84 L (1.20-3.40) K/uL [place] # (Auto) 0.89 H (0.11-0.59) K/uL D-Dimer 2260 H* (0-500) ug/L FEU Sodium 135 L (136-145) mmol/L Glucose 111 H 143 H (70-99(Fasting)) mg/dl M. pneumoniae (PCR) DETECTED A (NotDetected) (2) Aspiration pneumonia Aspiration pneumonia type: unspecified Laterality: right Lung location: lower lobe of lung Qualified Code(s): J69.0 - Pneumonitis due to inhalation of food and vomit
--- NOTE | 2024-04-14 14:57 | Electrocardiogram Report ---
Test Reason : Blood Pressure : */* mmHG Vent. Rate : 125 BPM Atrial Rate : 125 BPM P-R Int : 128 ms QRS Dur : 88 ms QT Int : 282 ms P-R-T Axes : 71 92 46 degrees QTcB Int : 407 ms Sinus tachycardia Rightward axis Brugada pattern, type 1 Abnormal ECG No previous ECGs available Confirmed by Meet Forrester ([id number]) on 04/14/2024 2:57:02 PM Referred By: REFERRED SELF Confirmed By: Meet Forrester
[2024-04-14] MEDS: AZITHROMYCIN 250 MG TAB PO SCH (21:49)
[2024-04-15 08:50] LABS: Hemoglobin 13.7 g/dl (14.0-18.0); Mean Corpuscular Hemoglobin 28.2 pg (25.0-34.0); Mean Corpuscular Hgb Conc 34.3 g/dL (32.0-36.0); Mean Corpuscular Volume 82.5 fL (80.0-100.0); Mean Platelet Volume 10.5 fL (9.4-12.4); Platelet Count 214 K/uL (130-400); RDW Standard Deviation 36.3 fL (36.4-46.3); Red Blood Count 4.85 M/uL (4.70-6.10); White Blood Count 8.31 K/ul (4.8-10.8)
[2024-04-15 09:04] LABS: BUN Creatinine Ratio 15.8 (10-20); Calcium 8.9 mg/dl (8.6-10.3); Creatinine Clr Calc Pharmacy 138.1 ml/min; Potassium 3.8 mmol/L (3.5-5.1)
[2024-04-15] MEDS: AMOXICILLIN/CLAVULANATE 875 MG TAB PO SCH (09:55)
[2024-04-15] MEDS ORDERED: guaiFENesin 600 MG TABCR PO SCH (10:15)
[2024-04-15] MEDS: guaiFENesin 600 MG TABCR PO SCH (11:08)
--- NOTE | 2024-04-15 11:32 | Hospitalist Progress Note ---
Date of Service April 15, 2024 Assessment & Plan (1) Pneumonia involving right lung: (2) Aspiration pneumonia: (3) Infection due to Mycoplasma pneumoniae: Plan 28-year-old male with past medical history significant for laryngeal spasm, obstructive sleep apnea but was not tolerant to CPAP, irritable bowel syndrome, GERD, history of binge eating disorder, presents with cough and shortness of breath and found to have pneumonia. In the ER he was tachycardic and spiking temperatures and received fluids. Respiratory bio fire came back positive for mycoplasma pneumonia. CXR showed Right lung pneumonia CT PE did not show PE but noted right lung pneumonia Mycoplasma pneumonia Possible aspiration pneumonia Continue azithromycin Unasyn changed to Augmentin due to IVF shortage per pharm recs Will monitor Will need 2 step prior to dc Supportive care History of obstructive sleep apnea Patient states he could not tolerate CPAP Patient states he sleeps well Plan to follow up with sleep medicine about his machine DVT prophylaxis Lovenox Disposition Med/telemetry Full code. I spent a total of 50 minutes coordinating, documenting and providing care for this patient excluding time spent in performance of separately billed services Admission and Anticipated Discharge Date Admission Date: April 13, 2024 Subjective Patient seen and examined Still reports productive cough and exertional dyspnea Stated sputum today was blood tinged Denied chest pain or any other complaints today Taken off oxygen this AM Physical Exam Constitutional: + well hydrated; no acute distress Eyes: PERRL, conjunctivae normal, anicteric sclerae ENMT: external ear and nose normal, oropharynx normal Respiratory: Not in resp distress, + crackles in Right lung Cardiovascular: Rate/Rhythm: regular rate and regular rhythm Gastrointestinal (Abdomen): normal bowel sounds, soft, nontender, no hepatosplenomegaly Musculoskeletal: no cyanosis or clubbing, extremities motor strength 5/5 Neurologic: PERRL, EOMI, accommodation nl, no face palsy, no dysarthria Psychiatric: A+Ox3, euthymic affect Results & Data Results & Data Vital Signs (Past 12 Hours) Vital Signs Temp Pulse Pulse Resp BP BP Pulse Ox 04/15/24 11:25 36.5 C 88 18 115/66 94 04/15/24 08:35 04/15/24 07:43 36.3 C L 85 18 122/81 93 04/15/24 07:16 83 04/15/24 03:38 36.7 C 96 H 16 112/69 93 O2 Del Method 04/15/24 11:25 Room Air 04/15/24 08:35 Room Air 04/15/24 07:43 Room Air 04/15/24 07:16 04/15/24 03:38 Room Air Laboratory Results Abnormal lab results 04/15/24 Range/Units 08:37 Hgb 13.7 L (14.0-18.0) g/dl Hct 40.0 L (42.0-52.0) % RDW Std Deviation 36.3 L (36.4-46.3) fL Glucose 110 H (70-99(Fasting)) mg/dl (2) Aspiration pneumonia Aspiration pneumonia type: unspecified Laterality: right Lung location: lower lobe of lung Qualified Code(s): J69.0 - Pneumonitis due to inhalation of food and vomit
[2024-04-16 06:55] LABS: Hematocrit (blood only) 38.7 % (42.0-52.0); Mean Corpuscular Hgb Conc 33.6 g/dL (32.0-36.0); Mean Corpuscular Volume 83.2 fL (80.0-100.0); Mean Platelet Volume 10.8 fL (9.4-12.4); Platelet Count 220 K/uL (130-400); RDW Coefficient of Variation 11.5 % (11.5-14.5); RDW Standard Deviation 34.6 fL (36.4-46.3); Red Blood Count 4.65 M/uL (4.70-6.10); White Blood Count 6.92 K/ul (4.8-10.8)
[2024-04-16 07:12] LABS: BUN Creatinine Ratio 15.4 (10-20); Calcium 8.7 mg/dl (8.6-10.3); Creatinine Clr Calc Pharmacy 142.2 ml/min; Potassium 3.6 mmol/L (3.5-5.1)
[2024-04-16 07:30] VITALS: TEMP 97.7
--- NOTE | 2024-04-16 09:40 | Discharge Summary ---
Date of Service April 16, 2024 Admission HPI Per Admitting Provider 28-year-old male with past medical history significant for laryngeal spasm, obstructive sleep apnea but was not tolerant to CPAP, irritable bowel syndrome, GERD, history of binge eating disorder, presents with cough and shortness of breath and found to have pneumonia. Since last Thursday patient having fever and chills but since last night developed cough and shortness of breath. Yesterday had also episode of vomiting. Currently still nauseous. Has some chest tightness. No headache. No runny nose or sore throat. No abdominal pain. Normal bowel and bladder movements. In the ER he was tachycardic and spiking temperatures and received fluids. Respiratory bio fire came back positive for mycoplasma pneumonia. Past medical history. As mentioned above Past surgical history. Knee arthroscopy. Laryngoscopy. Right thigh lipoma removed. Left shoulder arthroscopy. Social history. No smoking. Alcohol rarely. No drug use. Family history. Father has Crohn's disease. Paternal uncle has ulcerative colitis. Admission Exam Per Admitting Provider General- Not in distress Head- atraumatic Eyes- PERRL. ENT- oropharynx clear Neck- supple, no JVD. Lungs- clear to auscultation no wheezing, mild bibasilar crackles Heart- regular rhythm; tachycardia,no murmur, no gallop. Abdomen- normal bowel sounds, soft, nontender, no distension. Extremities- no pretibial edema, no erythema seen Neuro- alert, oriented PERRL, no facial palsy; no dysarthria; moves extremities Principal Diagnosis Pneumonia Discharge Exam Constitutional + well hydrated; no acute distress Eyes PERRL, conjunctivae normal, anicteric sclerae ENMT external ear and nose normal, oropharynx normal Respiratory Not in resp distress, + crackles in Right lung Cardiovascular Rate/Rhythm: regular rate and regular rhythm Gastrointestinal (Abdomen) normal bowel sounds, soft, nontender, no hepatosplenomegaly Musculoskeletal no cyanosis or clubbing, extremities motor strength 5/5 Neurologic PERRL, EOMI, accommodation nl, no face palsy, no dysarthria Psychiatric A+Ox3, euthymic affect Discharge Data Allergies Allergy/AdvReac Type Severity Reaction Status Date / Time No Known Allergies Allergy Unverified 03/18/16 15:59 Consultations 04/13/24 21:47 ED Decision to Admit Stat Ordered Studies 04/13/24 21:06 CT angio chest PE protocol Stat 1. Accounting for limitations with respiratory artifact, there is no evidence for pulmonary embolism. A few distal subsegmental pulmonary artery segments are of limited quality. 2. Patchy to confluent airspace disease noted in the right lower lobe with air bronchograms identified in the posterior basal segments. No definite cavitation. Minimal subsegmental changes noted involving the inferomedial right middle lobe. Findings are most consistent with multifocal pneumonia, most prominent in the right lower lobe. No pleural effusion or pneumothorax. Hospital Course (1) Pneumonia involving right lung: (2) Aspiration pneumonia: (3) Infection due to Mycoplasma pneumoniae: Plan 28-year-old male with past medical history significant for laryngeal spasm, obstructive sleep apnea but was not tolerant to CPAP, irritable bowel syndrome, GERD, history of binge eating disorder, presents with cough and shortness of breath and found to have pneumonia. In the ER he was tachycardic and spiking temperatures and received fluids. Respiratory bio fire came back positive for mycoplasma pneumonia. CXR showed Right lung pneumonia CT PE did not show PE but noted right lung pneumonia Mycoplasma pneumonia Possible aspiration pneumonia Was treated with antibiotics Required oxygen briefly due to shortness of breath 2 step today did not show any oxygen need at rest or with activity Discharged on po Augmentin and azithromycin to complete treatment History of obstructive sleep apnea Patient states he could not tolerate CPAP Patient states he sleeps well Plan to follow up with sleep medicine about his machine Total Time Total Time Spent Total Time Spent (In Minutes): 35 Total Time Includes: Examination of the Patient, Discharge Planning and Medication Reconciliation Discharge Plan Discharge Items Patient Disposition: Home - Self-Care Reason For Visit: PNEUMONIA Discharge Diagnosis: Pneumonia Activity: Resume your previous activity Non-emergency contact: Primary Care Provider Call non-emergency contact if: you have any medication questions Follow-up/Referrals: Dioni Hartman MD [Primary Care Provider] - (Date & Time 04/21/2024 10:40 AM Provider Dioni Hartman MD Department [facility] ) Diet: Regular Addtl Attending Provider Instructions: Mr Javier You were hospitalized and managed for pneumonia. Your symptoms are improving. You are being discharged on another day of antibiotics to complete treatment. Please ensure follow up with your Primary Doctor. It was a pleasure taking care of you Pending Studies at Discharge: No Stand-Alone Forms: [facility], Work/School Release, Smoking Cessation Medications and DC Order Prescriptions: New azithromycin 250 mg Tablet 250 mg PO PM 1 Days Qty: 1 0RF amoxicillin-pot clavulanate 875-125 mg Tablet 1 tab PO BID 1 Days Qty: 3 0RF guaifenesin [Mucinex] 600 mg Tablet Extended Release 12hr 1,200 mg PO Q12 5 Days Qty: 20 0RF benzonatate 100 mg Capsule 100 mg PO TID PRN (Reason: cough) Qty: 14 0RF Continued venlafaxine 75 mg capsule,extended release 24hr 75 mg PO DAILY Discharge Orders: Discharge Order (Routine); Ordered 04/16/24 Ordered By: Hanna Mariscal Admission Data Admit Date/Time: 04/13/24 23:19 Attending Provider: Hanna Mariscal I. Admit Provider: Ilya Mayen Primary Care Provider: Dioni Hartman Other Providers: Ilya Mayen Other Interventions: Discharge Summary Assessment (RN) Last Done: 04/16/24 10:33
[2024-04-16 10:34] VITALS: BP 115/73; PULSE 101; RESP 18; O2SAT 94
== END 2024-04-16 11:43 | disposition home or self-care (01) | DRG 195 ==
LOC: ED 19:36 → EDINP 23:19 → 2W 04-14 00:43